=== PATIENT | female | born 1950 | race Caucasian/White ===

== ENCOUNTER → 2016-03-20 | Outpatient (CLI) | payer OTHER ==
[~2016-03-20] MED LIST: ACETAMINOPHEN-1 EAC1 PO; APAP650 PO; ASPIR 8181 MG PO; BISAC-EVAC10 MG RC; CELEBREX 200 M200 M1 PO; CELEBREX 200 M200 MG PO; CENTRUM SILVER1 EAC4 PO; CIPRO250 M1 PO; CIPRO500 MG PO; CLEOCIN HCL150 MG PO; COLACE100 MG PO; COLESTID1 GM PO; COUMADIN 5 MG TA5 M1; ENOXAPARIN80 MG/0.1; FLAGYL500 MG PO; FLORANEX TABLE1 EACH PO; GENTAMICIN 0.1%15 G2; LEVOTHYROXINE 0.15MG PO; LEVOXYL25 MCG PO; LIDODERM 5%1 PATC1 TRANSDERM; LIPITOR40 MG PO; LISINOPRIL10 MG PO; NORCO 5-325 TA1 EACH PO; PAXIL10 MG; SENNA PO; SERTRALINE HCL100 MG PO; TRAMADOL 50 MG50 MG PO; TRIAMCINOLONE A80 G2 TOP; VITAMIN B-12500 MCG PO; VITAMIN C500 M1 PO; VITAMIN D 5050000 I1 PO; XARELTO10 MG PO; ZETIA10 MG PO; ZOLOFT100 MG PO
== END ==
LOC: HYPER 07:15
DX: I89.0 Lymphedema, not elsewhere classified (principal); M81.0 Age-related osteoporosis without current pathological fracture

== ENCOUNTER → 2016-06-16 | Outpatient (CLI) | payer OTHER | LOC: HYPER 05-29 12:04 | DX: I89.0 Lymphedema, not elsewhere classified (principal); M16.12 Unilateral primary osteoarthritis, left hip; M81.0 Age-related osteoporosis without current pathological fracture ==

== ENCOUNTER → 2016-07-25 | Outpatient (CLI) | payer OTHER | LOC: RAD 02:33 | DX: R92.8 Other abnormal and inconclusive findings on diagnostic imaging of breast (principal) ==

== ENCOUNTER → 2016-08-24 | Outpatient (CLI) | payer OTHER | LOC: HYPER | DX: I89.0 Lymphedema, not elsewhere classified (principal); M16.12 Unilateral primary osteoarthritis, left hip; M81.0 Age-related osteoporosis without current pathological fracture ==

== ENCOUNTER → 2016-12-04 | Outpatient (CLI) | payer OTHER | LOC: HYPER 11-02 07:01 | DX: B43.2 Subcutaneous pheomycotic abscess and cyst (principal); M81.0 Age-related osteoporosis without current pathological fracture; I89.0 Lymphedema, not elsewhere classified; H26.9 Unspecified cataract; Z96.652 Presence of left artificial knee joint ==

== ENCOUNTER → 2016-12-06 | Outpatient (CLI) | payer OTHER | LOC: ULTRA 14:10 | DX: I89.0 Lymphedema, not elsewhere classified (principal); M25.562 Pain in left knee ==

== ENCOUNTER 2016-12-12 12:33 | Inpatient (IN) | payer OTHER ==
[~2016-12-12] VITALS: Ht 175.3 cm; Wt 82.6 kg
--- NOTE | ~2016-12-12 | HC ---
[facility] [place] [address] CONSULTATION Name: MEGAN SMITH Richard Room #: 409-P ADM IN M.R.#: [id number] Admission: 12/19/16 Attend Phys: Gerardo Reyes MD Discharge: Date of : 46 Report #: [id number] THIS REPORT FOR: //name// CC: Cristina Reyes REASON FOR CONSULTATION: Left total knee arthroplasty infection. HISTORY OF PRESENT ILLNESS: The patient was a 66-year-old with degenerative arthritis. She had a left total knee arthroplasty several years ago. Had difficulties during the early postoperative time with a nonhealing incision. It was felt that it most likely related to stitches not dissolving. She also has underlying chronic lymphedema. It took about 5 months for the incision to close. No obvious infection was identified during that time. Now presents for explantation of her hardware and tissue cultures after onset of increased pain along with medial compartment erythema. This did not respond to oral antibiotic therapy including Bactrim. I do not have her preoperative workup. It appears that there was evidence of fluid within the joint and surrounding tissues. Taken to surgery today for explantation. Postoperatively, appears stable. ALLERGIES: OXYCODONE, LYRICA, ADHESIVE TAPE, NEURONTIN. SULFA is recorded, but the patient was on this prior to her admission. MEDICATIONS: As noted on APR, now including vancomycin. Other medications as noted on her APR. PAST MEDICAL HISTORY: Bimalleolar fracture right ankle; chronic lymphedema; osteoarthritis involving multiple joints, more symptomatic at current time is her left hip; hypertension; anemia of chronic disease; obesity; hypothyroidism; hyperlipidemia; irritable bowel syndrome; ischemic colitis; DVT; depression; anxiety; cataract surgery; tonsillectomy. FAMILY HISTORY: Noncontributory. SOCIAL HISTORY: Nonsmoker, no significant alcohol intake. REVIEW OF SYSTEMS: No cardiopulmonary, GI or complaints. PHYSICAL EXAMINATION: VITAL SIGNS: Afebrile and hemodynamically stable. GENERAL: She is a bit lethargic, having just come out of surgery. She was cooperative and conversant. HEENT: Unremarkable. NECK: Supple. LUNGS: Clear. HEART: Regular with a 2/6 systolic murmur heard at left sternal border. ABDOMEN: Soft, nontender, no hepatosplenomegaly. Moderate obesity. [address] [address] CONSULTATION Name: MEGAN SMITH Room #: [address] [place] [address] IN [facility].#: [id number] Admission: 12/19/16 Attend Phys: Gerardo Reyes MD Discharge: Date of : 46 Report #: [id number] EXTREMITIES: Lymphedema to both lower extremities. Left knee was in surgical wrap with a Hemovac in place and external brace. Sensation to toes normal. Pulses in her feet normal. LABORATORY STUDIES: MRSA screen negative. Operative cultures are pending. Gram stain pending. Bone scan on 12/15/2016, increased blood flow to the left knee with increased uptake in the periarticular regions of the right knee consistent with severe osteoarthritis. Normal uptake in the bone adjacent to the arthroplasty on the left knee. IMPRESSION AND PLAN: A 66-year-old with left total knee arthroplasty infection. Pending Gram stain and cultures. The patient was on Bactrim leading into her surgery by history. This may affect our results. We will go with vancomycin to start with and then adjust accordingly. She will have a ____ catheter placed. We will check CBC, sedimentation rate, CMP. The lymphedema will be controlled. We will have lymphedema clinic sterile preparation technician assist while she is hospitalized. <ELECTRONICALLY SIGNED> By: Caesar Edwards MD 12/20/16 0817 1942 [id number] Caesar Edwards MD /nt
--- NOTE | ~2016-12-12 | O ---
[facility] [place] [address] OPERATIVE REPORT Name: MEGAN SMITH Room #: 409-P ADM IN M.R.#: [id number] Admission: 12/19/16 Attend Phys: Gerardo Reyes MD Discharge: Date of : 46 Report #: [id number] THIS REPORT FOR: //name// CC: Cristina Reyes DATE OF SERVICE: 12/19/2016 PREOPERATIVE DIAGNOSIS: Left knee wound infection with history of total knee arthroplasty. POSTOPERATIVE DIAGNOSIS: Left knee wound infection with history of total knee arthroplasty. PROCEDURE: Left knee irrigation, debridement and explantation of total knee implant followed by implantation of antibiotic spacer. SURGEON: Gerardo Reyes MD. DIGITAL EXPERIENCE MANAGER: ZEHRA Boone. ANESTHETIC: General. INDICATIONS: See [facility] and P. DESCRIPTION OF PROCEDURE: After adequate general anesthesia had been obtained, the patient's left lower extremity was prepped and draped in the usual meticulous sterile fashion. We used her previously made incision and we did ellipse out an area where she had a widened scar. Subcutaneous was divided sharply. We did encounter a purulent pocket of fluid anteromedially. We traced this down and I did traverse the quadriceps tendon and went intraarticularly thus communicating with the joint. For this reason, I felt explantation was indicated. We went ahead and did a medial parapatellar incision. The patient had exuberant reactive scar formation, which was excised. We then carefully removed the implant by using flexible osteotomes around the implant and then removing the implant. On the tibial side, we used flexible osteotomes proximally and then used the introducer to pull the tibia out. The patella was likewise removed. We took great care to ensure we removed all cement. The wound was irrigated with both pulse lavage and antibiotic irrigation. We then fabricated to antibiotic spacers made of cement. We placed 2 g of vancomycin into each. These were injected into the mould and allowed to fully harden. We then mixed up another batch of vancomycin impregnated cement to stabilize the implant. The implant was then put into position and held in position until the cement hardened. We then irrigated copiously once again and placed vancomycin powder in the interstices of the wound another gram and then placed interrupted [address] [address] OPERATIVE REPORT Name: SARAHMEGAN Richard Room #: 409-P [facility] IN M.R.#: [id number] Admission: 12/19/16 Attend Phys: Gerardo Reyes MD Discharge: Date of : 46 Report #: [id number] #1 Vicryl sutures along the retinaculum and then ran a #1 Tevdek. SubQ was closed with 2-0 Monocryl and the skin was closed with ivonne. We did place drains deep and superficial and we placed a Prevena dressing. The tourniquet was then deflated. <ELECTRONICALLY SIGNED> By: Gerardo Reyes MD 12/24/16 2123 1605 1653 Gerardo Reyes MD /nt
--- NOTE | ~2016-12-12 | EKG ---
[address] [address] ELECTROCARDIOGRAM REPORT Name: MARTA SMITHIRE Richard Room #: PRE IN [facility]#: [id number] Admission: Attend Phys: Gerardo Reyes MD Discharge: Date of : 46 Report #: [id number] THIS REPORT FOR: //name// [facility] Test Date: 2016-12-15 Test Time: 14:39:31 Pat Name: MEGAN SMITH Department: Room: Gender: F [employer] Principal: marquez aguilar : 1950 Requested By: Gerardo Reyes Order Number: [id number] MD: Raad Massey Measurements Intervals [place] Rate: 70 P: 63 LA: 174 QRS: 93 QRSD: 101 T: 1 QT: 373 QTc: 403 Interpretive Statements Pacemaker spikes or artifacts Sinus rhythm Borderline ST depression, inferior leads ST elevation, consider anterior injury Compared to ECG 06/30/2014 09:09:42 ST (T wave) deviation now present Myocardial infarct finding now present Electronically Signed On 12-15-2016 16:51:03 CDT by Raad Massey [email or web address] <ELECTRONICALLY SIGNED> By: Raad Massey MD 12/15/16 1651 1439 1439 Raad Massey MD /EPI
--- NOTE | ~2016-12-12 | EKG ---
[address] [address] ELECTROCARDIOGRAM REPORT Name: MARTA SMITHIRE Richard Room #: 409-P ADM IN M.R.#: [id number] Admission: 12/19/16 Attend Phys: Gerardo Reyes MD Discharge: Date of : 46 Report #: [id number] THIS REPORT FOR: //name// [facility] Test Date: 2016-12-25 Test Time: 08:58:11 Pat Name: MEGAN SMITH Department: Room: 409 P Gender: F Dry Janitor: JAMAL : 1950 Requested By: Jhonny Allan Order Number: [id number] MD: Raad Massey Measurements Intervals [place] Rate: 76 P: 36 [place]: 159 QRS: 0 QRSD: 100 T: 41 QT: 353 QTc: 397 Interpretive Statements Sinus rhythm Probable anteroseptal infarct, recent Compared to ECG 12/15/2016 14:39:31 ST (T wave) deviation no longer present Myocardial infarct finding still present Electronically Signed On 12-25-2016 14:11:42 CDT by Raad Massey [email or web address] <ELECTRONICALLY SIGNED> By: Raad Massey MD 12/25/16 1411 0858 0858 Raad Massey MD /EPI
[2016-12-14] MEDS ORDERED: BACTRIM DS TAB1 EACH PO (15:34)
[2016-12-14] MEDS ORDERED: CYMBALTA30 MG PO (15:37)
[2016-12-15 15:04] LABS: INR 1.1; PROTIME 10.9 Seconds (9.3-11.4)
[2016-12-15 15:24] LABS: URINE BILIRUBIN NEGATIVE (Negative); URINE BLOOD NEGATIVE (Negative); URINE COLOR YELLOW; URINE GLUCOSE-RANDOM* NEGATIVE (Negative); URINE KETONES NEGATIVE (Negative); URINE LEUKOCYTES-REFLEX NEGATIVE (Negative); URINE PROTEIN (DIPSTICK) NEGATIVE (Negative); URINE SPECIFIC GRAVITY <= 1.005 (1.003-1.035); URINE UROBILINOGEN 0.2 E.U./dl (0.2-1.0)
[2016-12-19 18:00] VITALS: BP 135/65
[2016-12-19 19:00] VITALS: BP 129/69
[2016-12-19 19:30] VITALS: BP 133/68
[2016-12-19 20:00] VITALS: BP 120/54
[2016-12-19 21:30] VITALS: BP 132/71
[2016-12-20] VITALS: BP 164/69
[2016-12-20 04:00] VITALS: BP 151/55
[2016-12-20 06:04] LABS: HEMATOCRIT 25.9 % (37.0-47.0); HEMOGLOBIN 8.7 gm/dL (12.0-15.0); MCH 28.5 pg (26.0-34.0); MCHC 33.4 g/dL (28.0-37.0); MCV 85.4 fL (80.0-100.0); PLATELET COUNT 193 thou/uL (150-400); RBC 3.03 mil/uL (4.20-5.00); RDW 14.8 % (10.5-14.5); WBC 7.4 thou/uL (4.0-11.0)
[2016-12-20 06:11] LABS: MANUAL DIFF YES
[2016-12-20 06:18] LABS: CALCIUM 9.1 mg/dL (8.5-10.1); CREATININE 0.7 mg/dL (0.6-1.0); POTASSIUM 4.9 mmol/L (3.5-5.1); TOTAL BILIRUBIN 0.6 mg/dL (<0.1-1.0); TOTAL PROTEIN 6.3 g/dL (6.4-8.2)
[2016-12-20 08:00] VITALS: BP 153/64
[2016-12-20 09:16] LABS: ABSOLUTE NEUTROPHILS 5.4 thou/uL (1.4-8.2); ANISOCYTOSIS SLIGHT; POIKILOCYTOSIS SLIGHT; TOTAL CELL COUNT 100
[2016-12-20 20:45] VITALS: BP 163/74
[2016-12-21] VITALS (7 sets, daily range): BP systolic 99–141; BP diastolic 38–60
[2016-12-21 05:34] LABS: ABSOLUTE NEUTROPHILS 3.8 thou/uL (1.4-8.2); BASOPHILS 0.5 % (0.0-2.0); EOSINOPHILS 0.4 % (0.0-3.0); LYMPHOCYTES 17.6 % (24.0-44.0); MCH 28.8 pg (26.0-34.0); MCHC 33.8 g/dL (28.0-37.0); MCV 85.1 fL (80.0-100.0); PLATELET COUNT 130 thou/uL (150-400); POLYS 69.5 % (36.0-66.0); RBC 2.28 mil/uL (4.20-5.00); WBC 5.5 thou/uL (4.0-11.0)
[2016-12-21 05:36] LABS: CALCIUM 8.6 mg/dL (8.5-10.1); CREATININE 0.5 mg/dL (0.6-1.0)
[2016-12-21 05:38] LABS: HEMOGLOBIN 6.6 gm/dL (12.0-15.0)
[2016-12-21 05:39] LABS: HEMATOCRIT 19.4 % (37.0-47.0); MANUAL DIFF NO
[2016-12-22 07:18] VITALS: BP 123/51
[2016-12-22 08:35] LABS: ABSOLUTE NEUTROPHILS 4.8 thou/uL (1.4-8.2); BASOPHILS 0.4 % (0.0-2.0); EOSINOPHILS 0.9 % (0.0-3.0); HEMATOCRIT 23.3 % (37.0-47.0); HEMOGLOBIN 7.9 gm/dL (12.0-15.0); LYMPHOCYTES 17.7 % (24.0-44.0); MCH 29.3 pg (26.0-34.0); MCV 86.3 fL (80.0-100.0); MONOCYTES 9.8 % (1.0-8.0); PLATELET COUNT 125 thou/uL (150-400); POLYS 71.2 % (36.0-66.0); RBC 2.71 mil/uL (4.20-5.00); RDW 14.6 % (10.5-14.5); WBC 6.7 thou/uL (4.0-11.0)
[2016-12-22 08:37] LABS: MANUAL DIFF NO
[2016-12-22 08:43] LABS: CALCIUM 8.8 mg/dL (8.5-10.1); CREATININE 0.5 mg/dL (0.6-1.0); POTASSIUM 4.1 mmol/L (3.5-5.1)
[2016-12-22] MEDS ORDERED: ENOXAPARIN30 MG/0.1 SUBQ (09:31)
[2016-12-22 15:35] VITALS: BP 124/47
[2016-12-22 20:00] VITALS: BP 121/51
[2016-12-23 04:12] VITALS: BP 114/59
[2016-12-23 07:14] VITALS: BP 126/55
[2016-12-23 15:06] VITALS: BP 138/49
[2016-12-23 20:00] VITALS: BP 121/57
[2016-12-24 04:00] VITALS: BP 120/61
[2016-12-24 06:42] LABS: ABSOLUTE NEUTROPHILS 4.9 thou/uL (1.4-8.2); BASOPHILS 0.4 % (0.0-2.0); EOSINOPHILS 0.9 % (0.0-3.0); HEMATOCRIT 22.9 % (37.0-47.0); HEMOGLOBIN 7.7 gm/dL (12.0-15.0); LYMPHOCYTES 19.4 % (24.0-44.0); MCH 29.4 pg (26.0-34.0); MCHC 33.6 g/dL (28.0-37.0); MCV 87.6 fL (80.0-100.0); MONOCYTES 10.2 % (1.0-8.0); PLATELET COUNT 164 thou/uL (150-400); POLYS 69.1 % (36.0-66.0); RBC 2.61 mil/uL (4.20-5.00); RDW 15.3 % (10.5-14.5); WBC 7.1 thou/uL (4.0-11.0)
[2016-12-24 06:45] LABS: MANUAL DIFF NO
[2016-12-24 06:54] LABS: CREATININE 0.4 mg/dL (0.6-1.0); POTASSIUM 3.1 mmol/L (3.5-5.1)
[2016-12-24 09:10] VITALS: BP 124/64
[2016-12-24 16:10] VITALS: BP 124/59
[2016-12-24 20:00] VITALS: BP 144/62
[2016-12-25 04:00] VITALS: BP 147/65
[2016-12-25 06:31] LABS: ABSOLUTE NEUTROPHILS 4.2 thou/uL (1.4-8.2); BASOPHILS 0.2 % (0.0-2.0); EOSINOPHILS 1.3 % (0.0-3.0); HEMATOCRIT 21.9 % (37.0-47.0); HEMOGLOBIN 7.4 gm/dL (12.0-15.0); LYMPHOCYTES 16.6 % (24.0-44.0); MCH 29.4 pg (26.0-34.0); MCHC 33.8 g/dL (28.0-37.0); MCV 87.1 fL (80.0-100.0); MONOCYTES 11.2 % (1.0-8.0); PLATELET COUNT 182 thou/uL (150-400); POLYS 70.7 % (36.0-66.0); RBC 2.52 mil/uL (4.20-5.00); RDW 15.2 % (10.5-14.5); WBC 5.9 thou/uL (4.0-11.0)
[2016-12-25 06:41] LABS: MANUAL DIFF NO
[2016-12-25 06:49] LABS: CALCIUM 8.9 mg/dL (8.5-10.1); CREATININE 0.5 mg/dL (0.6-1.0); POTASSIUM 4.1 mmol/L (3.5-5.1)
[2016-12-25] MEDS ORDERED: ACETAMINOPHEN-1 EAC1 PO (08:34)
[2016-12-25 08:40] VITALS: BP 145/70
[2016-12-25 16:00] VITALS: BP 101/66
[2016-12-25 20:30] VITALS: BP 110/60
[2016-12-26 05:35] VITALS: BP 106/59
[2016-12-26 08:00] VITALS: BP 106/59
[2016-12-26 08:30] VITALS: BP 116/49
== END 2016-12-26 15:45 | DRG 463 ==
LOC: OR 12:33 → EDSTATUS 15:16 → OR 15:24 → 4N 12-19 05:11 → TBA 12-19 05:11 → PRE 12-19 05:21 → 4N 12-19 18:26
PROVIDERS: Family Medicine; Internal Medicine Endocrinology, Diabetes & Metabolism; Orthopaedic Surgery; Specialist
PROC: 0SPD0JZ Removal of Synthetic Substitute from Left Knee Joint, Open Approach (ICD-10-PCS; principal; 2016-12-19)
PROC: 0SBD0ZZ Excision of Left Knee Joint, Open Approach (ICD-10-PCS; 2016-12-19)
PROC: 0SHD08Z Insertion of Spacer into Left Knee Joint, Open Approach (ICD-10-PCS; 2016-12-19)
PROC: 02HV33Z Insertion of Infusion Device into Superior Vena Cava, Percutaneous Approach (ICD-10-PCS; 2016-12-20)
PROC: 30233N1 Transfusion of Nonautologous Red Blood Cells into Peripheral Vein, Percutaneous Approach (ICD-10-PCS; 2016-12-21)
DX: T84.54XA Infection and inflammatory reaction due to internal left knee prosthesis, initial encounter (principal); A41.9 Sepsis, unspecified organism; E44.1 Mild protein-calorie malnutrition; I89.0 Lymphedema, not elsewhere classified; M19.90 Unspecified osteoarthritis, unspecified site; I10 Essential (primary) hypertension; E66.9 Obesity, unspecified; E03.9 Hypothyroidism, unspecified; E78.5 Hyperlipidemia, unspecified; K58.9 Irritable bowel syndrome, unspecified; F32.9 Major depressive disorder, single episode, unspecified; F41.9 Anxiety disorder, unspecified; Y83.8 Other surgical procedures as the cause of abnormal reaction of the patient, or of later complication, without mention of misadventure at the time of the procedure; D64.9 Anemia, unspecified; E87.6 Hypokalemia; Z23 Encounter for immunization; Z88.8 Allergy status to other drugs, medicaments and biological substances; Z91.040 Latex allergy status; Z86.718 Personal history of other venous thrombosis and embolism; Z98.49 Cataract extraction status, unspecified eye; Y92.89 Other specified places as the place of occurrence of the external cause; Z68.26 Body mass index [BMI] 26.0-26.9, adult; Z88.2 Allergy status to sulfonamides
CPT/HCPCS: 10790; 27000; 50010; 50101; 50415; 50953; 50954; 51130; 51225; 51320; 51412; 51771; 53078; 55430; 56525; 56527; 62110; 62900; 64041; 70005

== ENCOUNTER → 2016-12-15 | Outpatient (CLI) | payer OTHER ==
[~2016-12-15] MED LIST changes: +BACTRIM DS TAB1 EACH PO; +CYMBALTA30 MG PO
== END ==
LOC: NUC 09:34
DX: M17.11 Unilateral primary osteoarthritis, right knee (principal)

== ENCOUNTER 2017-02-15 16:16 | Inpatient (IN) | payer OTHER ==
[~2017-02-15] VITALS: Ht 175.3 cm; Wt 83.9 kg
--- NOTE | ~2017-02-15 | HC ---
[facility] [place] [address] CONSULTATION Name: MEGAN SMITH Room #: 410- ADM IN M.R.#: [id number] Admission: 02/15/17 Attend Phys: Gerardo Reyes MD Discharge: Date of : 46 Report #: [id number] THIS REPORT FOR: //name// CC: Cristina Reyes DATE OF SERVICE: 02/15/2017 TYPE OF CONSULTATION: Internal Medicine. REASON FOR CONSULTATION: Medical management. HISTORY OF PRESENT ILLNESS: The patient is a 66-year-old female who was hospitalized here recently, in the beginning of this month. The patient was admitted here for left knee hardware removal, spacer placement for the infected left knee. Prior to that, the patient had several falls, and she had knee replacement surgery, followed by another fall. The patient states that she was recovering well, and this morning, she experienced severe pain in her left knee. She was seen in the outpatient orthopedic clinic, and she was found that her knee stabilizer hardware was displaced and penetrating the skin. The patient was admitted for further evaluation and treatment. Currently, pain is well controlled. The patient has no fever or chills. She states that a few days ago, she was told that she had flu. She denies wheezing, but reports nasal congestion. She has been afebrile since she has been here. PAST MEDICAL HISTORY: 1. Hypertension. 2. Hypothyroidism. 3. Anxiety and depression. 4. Osteoporosis. 5. Chronic lymphedema. 6. Status post left knee antibiotic spacer placement, and previous left knee surgeries. FAMILY HISTORY: Reviewed and not pertinent to the patient's current condition. SOCIAL HISTORY: The patient does not smoke cigarettes and does not drink alcohol. REVIEW OF SYSTEMS: As above in HPI section, all others negative. PHYSICAL EXAMINATION: GENERAL: The patient is an elderly female who is in no apparent distress. [facility] [address] [place] [address] CONSULTATION Name: MEGAN SMITH Room #: 410-P [facility] IN M.R.#: [id number] Admission: 02/15/17 Attend Phys: Gerardo Reyes MD Discharge: Date of : 46 Report #: [id number] VITAL SIGNS: Blood pressure is 113/55, heart rate is 70, respiration is 16, and temperature is 98.5. HEENT: Pupils are equal. Eye movements are normal. Sclerae are anicteric. NECK: Supple. The patient has no thyromegaly. JVD is not appreciated. The patient has no carotid bruits. RESPIRATORY: The patient has occasional wheezing. Respiratory sounds are otherwise normal. CARDIOVASCULAR: The patient has regular rhythm and rate. She has no murmurs, gallops or rubs. GASTROINTESTINAL: Abdomen is soft, nondistended and nontender. Bowel sounds are present. The patient has no hepatomegaly or splenomegaly. MUSCULOSKELETAL: The patient has lymphedema wrap on the right. The left leg is in cast. Range of motion cannot be assessed. NEUROLOGIC: The patient is alert and oriented x 3. Her examination is nonfocal. SKIN: Reveals no skin lesions. LABORATORY DATA: Currently not available. ASSESSMENT AND PLAN: 1. Status post knee surgeries, infected left knee, spacer placement earlier this month. The patient has hardware displacement, and she is seen and evaluated by orthopedic surgeon. The patient is supposed to be on IV antibiotics for a total of 6 weeks. Infectious disease specialist is consulted for antibiotic management and for further evaluation. 2. Hypertension, acceptable control. Home medications will be clarified, and resumed unchanged. 3. Hypothyroidism. Check TSH, adjust levothyroxine if necessary. 4. Anxiety and depression, stable. Resume home medications once clarified. 5. The patient reports recent flu, but she is not sure. We will test her for flu, and obtain chest x-ray. We will continue to follow the patient during the hospitalization, and we will provide further recommendations. Once again, thank you very much for allowing us to participate in the care of your patients. By: 1838 2310 Christiano Varela MD /nt
--- NOTE | ~2017-02-15 | O ---
[facility] [place] [address] OPERATIVE REPORT Name: MEGAN SMITH Room #: 410-P ADM IN M.R.#: [id number] Admission: 02/15/17 Attend Phys: Gerardo Reyes MD Discharge: Date of : 46 Report #: [id number] THIS REPORT FOR: //name// CC: Cristina Reyes DATE OF SERVICE: 02/16/2017 PREOPERATIVE DIAGNOSIS: Left knee painful hardware. POSTOPERATIVE DIAGNOSIS: Left knee painful hardware. PROCEDURE: Left knee hardware removal. SURGEON: Gerardo Reyes MD. ANESTHESIA: General. INDICATIONS: See hospital H and P. DESCRIPTION OF PROCEDURE: After adequate general anesthesia had been obtained, the patient's left lower extremity was prepped and draped in the usual meticulous sterile fashion. The pin that had been noted to be tenting her skin yesterday had actually gone on to poke through the skin overnight. The incision was extended a little bit proximally and distally from where the pin had protruded. The pin was removed without difficulty. The wound was then irrigated copiously with antibiotic irrigation. We then closed the wound with combination of 2-0 Monocryl subcu and ivonne. Sterile compressive dressing was applied. By: 0810 0831 Gerardo Reyes MD /nt
[~2017-02-15 16:16] MED LIST changes: +DILAUDID 2 MG TA2 MG PO; +ENOXAPARIN30 MG/0.1 SUBQ; +LEVOXYL150 MCG PO; +MIRALAX17 GM PO; +MOBIC7.5 MG PO; +VANCO 1.51.5 GM/500 IV; +VANCOMYCIN1.5 GM/500 IV
[2017-02-15 18:26] VITALS: BP 113/55
[2017-02-15 19:53] LABS: BASOPHILS 0.6 % (0.0-2.0); EOSINOPHILS 3.1 % (0.0-3.0); HEMATOCRIT 25.3 % (37.0-47.0); HEMOGLOBIN 8.7 gm/dL (12.0-15.0); LYMPHOCYTES 25.7 % (24.0-44.0); MCH 28.7 pg (26.0-34.0); MCHC 34.5 g/dL (28.0-37.0); MCV 83.2 fL (80.0-100.0); MONOCYTES 11.7 % (1.0-8.0); PLATELET COUNT 167 thou/uL (150-400); POLYS 58.9 % (36.0-66.0); RBC 3.04 mil/uL (4.20-5.00); WBC 3.3 thou/uL (4.0-11.0)
[2017-02-15 19:54] LABS: MANUAL DIFF NO
[2017-02-15 20:59] VITALS: BP 146/78
[2017-02-16] VITALS (11 sets, daily range): BP systolic 125–149; BP diastolic 53–84
[2017-02-16 06:21] LABS: HEMATOCRIT 25.1 % (37.0-47.0); HEMOGLOBIN 8.6 gm/dL (12.0-15.0); MCHC 34.4 g/dL (28.0-37.0); MCV 84.3 fL (80.0-100.0); PLATELET COUNT 161 thou/uL (150-400); RBC 2.98 mil/uL (4.20-5.00); WBC 2.8 thou/uL (4.0-11.0)
[2017-02-16 06:28] LABS: CREATININE 0.6 mg/dL (0.6-1.0); POTASSIUM 3.6 mmol/L (3.5-5.1)
[2017-02-16 06:30] LABS: MANUAL DIFF YES
[2017-02-16 08:45] LABS: ABSOLUTE NEUTROPHILS 1.6 thou/uL (1.4-8.2); ANISOCYTOSIS 1+; TOTAL CELL COUNT 100
[2017-02-17 04:00] VITALS: BP 145/84
[2017-02-17 05:57] LABS: HEMATOCRIT 23.9 % (37.0-47.0); HEMOGLOBIN 8.2 gm/dL (12.0-15.0); MCH 28.6 pg (26.0-34.0); MCHC 34.2 g/dL (28.0-37.0); MCV 83.7 fL (80.0-100.0); PLATELET COUNT 159 thou/uL (150-400); RBC 2.86 mil/uL (4.20-5.00); RDW 15.3 % (10.5-14.5)
[2017-02-17 05:59] LABS: MANUAL DIFF YES
[2017-02-17 06:29] LABS: ABSOLUTE NEUTROPHILS 1.6 thou/uL (1.4-8.2); TOTAL CELL COUNT 100
[2017-02-17 06:30] LABS: ANISOCYTOSIS 1+
[2017-02-17 08:00] VITALS: BP 183/84
[2017-02-17 16:00] VITALS: BP 121/65
[2017-02-17 20:00] VITALS: BP 163/82
[2017-02-18 04:00] VITALS: BP 166/92
[2017-02-18 16:17] VITALS: BP 155/75
[2017-02-18 21:11] VITALS: BP 196/88
[2017-02-19 06:03] VITALS: BP 178/92
[2017-02-19 09:42] VITALS: BP 158/82
[2017-02-19 12:50] LABS: % SATURATION 17 % (20-39); IRON 36 ug/dL (50-170); TIBC 215 ug/dL (250-450); UIBC 179 ug/dL
[2017-02-19 20:05] VITALS: BP 164/70
[2017-02-20 03:18] VITALS: BP 111/45
[2017-02-20 03:30] VITALS: BP 164/77
[2017-02-20 07:42] VITALS: BP 159/79
[2017-02-20] MEDS ORDERED: MULTIGEN CAPLET1 CAP PO (10:36)
== END 2017-02-20 15:15 | DRG 463 ==
LOC: 4N 16:16
PROVIDERS: Hospitalist; Internal Medicine Endocrinology, Diabetes & Metabolism; Orthopaedic Surgery; Specialist
PROC: 0SPD0JZ Removal of Synthetic Substitute from Left Knee Joint, Open Approach (ICD-10-PCS; principal; 2017-02-16)
PROC: 0SHD08Z Insertion of Spacer into Left Knee Joint, Open Approach (ICD-10-PCS; principal; 2017-02-16)
DX: T84.84XA Pain due to internal orthopedic prosthetic devices, implants and grafts, initial encounter (principal); E43 Unspecified severe protein-calorie malnutrition; I10 Essential (primary) hypertension; E03.9 Hypothyroidism, unspecified; F41.9 Anxiety disorder, unspecified; F32.9 Major depressive disorder, single episode, unspecified; M81.0 Age-related osteoporosis without current pathological fracture; Z96.652 Presence of left artificial knee joint; D64.9 Anemia, unspecified; L08.9 Local infection of the skin and subcutaneous tissue, unspecified; G89.29 Other chronic pain; M16.12 Unilateral primary osteoarthritis, left hip; S83.192A Other subluxation of left knee, initial encounter; Z88.6 Allergy status to analgesic agent; Z88.2 Allergy status to sulfonamides; Z88.8 Allergy status to other drugs, medicaments and biological substances; Z98.49 Cataract extraction status, unspecified eye; Z80.0 Family history of malignant neoplasm of digestive organs; Z68.27 Body mass index [BMI] 27.0-27.9, adult
CPT/HCPCS: 10790; 50010; 50101; 50386; 51412; 51771; 56525; 57091; 62110; 62900; 70005

== ENCOUNTER → 2017-11-22 | Outpatient (CLI) | payer OTHER ==
[~2017-11-22] VITALS: Ht 175.3 cm; Wt 116.0 kg
[~2017-11-22] MED LIST changes: +DURAGESIC1 EACH TRANSDERM; +FENTANYL1 EAC2 TRANSDERM; +FENTANYL1 EAC3 TRANSDERM; +FENTANYL1 EAC4 TRANSDERM; +MULTIGEN CAPLET1 CAP PO
--- NOTE | ~2017-11-22 | HPC ---
[facility] [place] [address] PAIN MANAGEMENT CONSULTATION Name: MEGAN SMITH Room #: REG [facility] Hien.#: [id number] Admission: 11/22/17 Attend Phys: Dom Tian MD Discharge: Date of : 46 Report #: [id number] THIS REPORT FOR: //name// CC: Cristina Tian DATE OF SERVICE: 11/22/2017 Followup visit for chronic pain. This is the first time I have seen the patient at [facility]. Her last visit with me was on 08/22/2017 at [facility]. This is more convenient for her. I will see her here going forward. I provided her with opioid medication baseline and breakthrough for chronic pain in the left hip and knee. She also suffers from lymphedema which is uncomfortable for her. Medications have been helpful, although she has developed some tolerance to the use of the fentanyl at 12 mcg, the lowest dose. She uses Tylenol No. 3 for breakthrough 3 times daily, generally taking it after or before therapy. She denies any significant side effects. She is grateful for the pain relief that the medication provides. She feels that she is able to function, particularly at therapy more effectively with pain medication. Comorbidities include depression, anemia, hypothyroidism, history of small CVA in 2015, osteoarthritis, depression, and she has struggled with the complications of the left knee replacement with resulting infection, replacement of the prosthesis with spacers and long-term antibiotic therapy. She remains limited in her standing and weightbearing. She is in a wheelchair today. PHYSICAL EXAMINATION: VITAL SIGNS: Blood pressure 123/51, heart rate 73, respirations 20. BMI is 29.5. GENERAL: She is alert and oriented, pleasant and kind. I did not ask her to stand or walk. Exam was limited. The PQRS review includes a history of osteoarthritis with complications following joint replacement as described. She is obese with a BMI of 37.8. Dietary oversight is warranted. Blood pressure is 123/51, heart rate 73, respirations 20, oxygen saturation 100%. She is a fall risk and needs help standing and walking. She is on no blood thinners at this time. Her hypertension is under treatment. She is on an opioid agreement signed on 11/22/2017 and her risk assessment tool is 3, suggesting low risk for misuse or [address] [address] PAIN MANAGEMENT CONSULTATION Name: MEGAN SMITH Room #: REG [facility] Hien.#: [id number] Admission: 11/22/17 Attend Phys: Dom Tian MD Discharge: Date of : 46 Report #: [id number] addiction. She denies use of tobacco or alcohol. IMPRESSION: 1. Chronic intractable pain status post left knee replacement with complications and need for removal of the prosthesis and long-term antibiotics. Slow recovery. 2. Situational depression. 3. Management of high risk medications under terms of an opioid agreement. RECOMMENDATIONS: We discussed increasing her fentanyl patch from 12-25 mcg. I believe this would be reasonable and if it appears that this is too strong, we can back down. We will continue Tylenol No. 3 for breakthrough, no more than 3 tablets per day. We talked about the use of breakthrough medication prior to therapy. She will safeguard her medications and use them as prescribed. Followup visit is scheduled in 3 months. By: 1650 2329 Dom Tian MD /nt
[2017-11-22 13:46] VITALS: BP 123/51
== END ==
LOC: PAIN 09:19
DX: G89.4 Chronic pain syndrome (principal); F32.9 Major depressive disorder, single episode, unspecified; Z79.899 Other long term (current) drug therapy

== ENCOUNTER → 2018-01-01 | Outpatient (CLI) | payer OTHER | LOC: HYPER 07:19 | DX: I89.0 Lymphedema, not elsewhere classified (principal); M81.0 Age-related osteoporosis without current pathological fracture; Z96.652 Presence of left artificial knee joint ==

== ENCOUNTER → 2018-02-28 | Outpatient (CLI) | payer OTHER ==
--- NOTE | ~2018-02-28 | HPC ---
[facility] [address] [place] [address] PAIN MANAGEMENT CONSULTATION Name: MEGAN SMITH Room #: REG [facility] M.R.#: [id number] Admission: 02/28/18 Attend Phys: Dom Tian MD Discharge: Date of : 46 Report #: [id number] THIS REPORT FOR: //name// CC: Cristina Tian REASON FOR CONSULTATION: Followup visit for chronic lower extremity pain status post left knee replacement with complications. The patient is here today for renewal of medications and review of her opioid agreement. She continues to do well with fentanyl 25 mcg q. 72 hours, providing a baseline of pain control for her. She has Tylenol No. 3 for breakthrough pain, which she utilizes up to 3 times a day, but does not take it with consistency. She uses it once again before or after her therapy. She is making progress in her therapies. She reports today that she is able to stand independently for up to 5 seconds. This is improvement. She suffers from lymphedema and when she is in her wheelchair, she keep her legs elevated. Her legs were elevated today throughout her visit. She has suffered in the past with depression and difficulties related to the prolonged chronic recovery from her complications of knee replacement. She seems more positive and upbeat today. I reviewed her activities of daily living. She is able to provide all of her own hygiene and dress. She needs some assistance and has a caregiver that assists for about 4 hours with some of her daily activities. She is making progress in her mobility and is able to transfer independently to a wheelchair. PQRS: 1. History of osteoarthritis of knees, hips, toes, fingers. 2. BMI 29.5. 3. Blood pressure 126/51, heart rate 70. 4. Pain intensity 0-1 with medication. 5. She needs help standing and walking. She has not fallen in 3 months, but would clearly be a fall risk if she was independent. 6. No blood thinners. 7. History of hypertension, under treatment with medication as noted on the electronic medical record, followed by Dr. Cristina Pierce. 8. She is on an opioid agreement signed in 2018. 9. She is at low risk for addiction. 10. Functional assessment tool is improved to 33/70. SOCIAL HISTORY: She denies use of tobacco. PHYSICAL EXAMINATION: Exam otherwise was limited. [facility] [address] [place] [address] PAIN MANAGEMENT CONSULTATION Name: MEGAN SMITH Room #: REG [facility] Amanda#: [id number] Admission: 02/28/18 Attend Phys: Dom Tian MD Discharge: Date of : 46 Report #: [id number] IMPRESSION: 1. Chronic intractable pain status post left knee replacement with complications, now with permanent replacement of knee, in slow recovery. 2. Situational depression, improved. 3. Management of high risk medications under terms of an opioid agreement. We reviewed all her medications and cross-check of her medications was performed. There are some electrolyte abnormalities that can occur with combinations of her antidepressant and antihypertensive medications. I would recommend that she follow these quarterly with her primary care physician. She denies any significant side effects from her fentanyl and is grateful for the relief that she receives. She will safeguard her patches. Follow up in 3 months. By: 1619 0227 Dom Tian MD /nt
[2018-02-28 09:53] VITALS: BP 126/51
--- NOTE | 2018-02-28 10:34 | NUR ---
Pain Clinic Assessment: 1. History of Osteoarthritis: KNEES HIPS TOES FINGERS History of Rheumatoid Arthritis: 2. Height: 5 ft. 9 in. 175.3 cm. Weight: lb. oz. kg. Patient's BMI: 3. Vital Signs: BP: 126/51 Pulse: 70 Resp: 16 Temp: 02 Sat: 100 ECG Mon: 4. Pain Intensity: 0-1 5. Fall Risk: Dizziness: N Needs help standing or walking: Y Fallen in the last 3 months: N Fall risk comments: 6. Patient on Blood Thinner: None 7. History of Hypertension: Y 8. Opioid Therapy greater than 6 weeks: Y Opiate Contract Signed: 11/22/17 9. Risk Assessment Tool Provided: *3 LOW RISK 10. Functional Assessment Tool: 11. Recreational Drug Use: Never Drug Type: Tobacco Use: Never Smoker Tobacco Type: Amount or Packs/day: How Many Years: Alcohol Use: No Frequency: Quant:
== END ==
LOC: PAIN 07:28
DX: M25.562 Pain in left knee (principal); G89.4 Chronic pain syndrome; F32.9 Major depressive disorder, single episode, unspecified; Z79.899 Other long term (current) drug therapy; Z79.891 Long term (current) use of opiate analgesic; Z96.652 Presence of left artificial knee joint

== ENCOUNTER → 2018-05-23 | Outpatient (CLI) | payer OTHER ==
[~2018-05-23] MED LIST changes: +TOPROL XL25 MG PO
[2018-05-23 10:35] VITALS: BP 126/50
--- NOTE | 2018-05-23 10:39 | NUR ---
Pain Clinic Assessment: 1. History of Osteoarthritis: KNEES HIPS TOES FINGERS History of Rheumatoid Arthritis: Not Applicable 2. Height: 5 ft. 9 in. 175.3 cm. Weight: lb. oz. kg. Patient's BMI: 3. Vital Signs: BP: 126/50 Pulse: 51 Resp: 16 Temp: 02 Sat: 98 ECG Mon: 4. Pain Intensity: 4 with activity 5. Fall Risk: Dizziness: N Needs help standing or walking: N Fallen in the last 3 months: N Fall risk comments: 6. Patient on Blood Thinner: None 7. History of Hypertension: Y 8. Opioid Therapy greater than 6 weeks: Y Opiate Contract Signed: 11/22/17 9. Risk Assessment Tool Provided: *3 LOW RISK 10. Functional Assessment Tool: 11. Recreational Drug Use: Never Drug Type: Tobacco Use: Never Smoker Tobacco Type: Amount or Packs/day: How Many Years: Alcohol Use: No Frequency: Quant:
--- NOTE | 2018-05-27 07:58 | HPC ---
[facility] [address] [place] [address] PAIN MANAGEMENT CONSULTATION Name: MEGAN SMITH Room #: REG FRANSICO [facility].#: [id number] Admission: 05/23/18 ������������������ Attend Phys: Christy Joy Discharge: ������������������ Date of : 46 Report #: [id number] THIS REPORT FOR: //name// CC: Chrsity Pierce MD DATE OF SERVICE: 05/23/2018 CHIEF COMPLAINT: Chronic lower extremity pain status post left knee replacement with complications. HISTORY OF PRESENT ILLNESS: The patient returns to the Pain Clinic today for refill of her medications under her opioid agreement. She is currently on fentanyl 25 mcg patches. She finds this is very beneficial for her. She occasionally takes some Tylenol No. 3 for breakthrough pain, but finds that she is using less of that medication. She does also have lymphedema and her legs are wrapped today as well as wearing a glove on her left hand. The patient tells me that her pain score is 4/10 with activity and currently at this moment she is stating her pain is 0. She is in a wheelchair today. She has not walked for some time, but she tells me that she decided within the past few days that she needs to start moving and getting up and walking and she realized that her legs are different length due to her surgeries, so she is looking for a special orthotic shoe to compensate for the difference in her height. She is working with a physical therapist on this, so therefore she can hopefully start walking again and building her strength. She tells me that she did not have any problems with constipation because she uses tomatoes, apples, oranges, and plenty of liquids. She also tells me she has no daytime sleepiness. Just would like a refill of her medications and very thankful that she is, where she is at today. ALLERGIES: SULFA, HYDROCODONE, OXYCODONE, ADHESIVE, GABAPENTIN AND LYRICA. CURRENT LIST OF MEDICINES: Toprol-XL 25 mg daily, fentanyl patch 25 mcg every 72 hours, Tylenol No. 3 p.r.n., Celebrex 200 mg daily, Cymbalta 30 mg at bedtime, vitamin C daily, Levoxyl 150 mcg daily, Lipitor 40 mg at bedtime, Zoloft 200 mg at bedtime. PQRS: 1. She has a history of osteoarthritis in her knees, hips, toes, and fingers. Denies rheumatoid arthritis. 2. Height is 5 feet 9 inches. Weight is deferred today. In October, it was 255. 3. Vital signs: Blood pressure 126/50, pulse is 51, respirations 16, oxygen sat is 98. 4. Pain score is 4/10 with activity, 0 currently sitting. [facility] [address] [place] [address] PAIN MANAGEMENT CONSULTATION Name: MEGAN SMITH Room #: REG CL Rajiv.Justina.#: [id number] Admission: 05/23/18 ������������������ Attend Phys: Christy Joy Discharge: ������������������ Date of : 46 Report #: [id number] 5. Fall risk. She denies dizziness. Does need help walking and standing and she is in a wheelchair today and she has not fallen in the last 3 months. 6. The patient is not on any blood thinners. She does take medicine for hypertension. 7. Opiate therapy is greater than 6 weeks. Therefore, an opiate signed contract is on the chart. 8. Risk assessment tool is low. Her functional assessment is 33/70. 9. Recreational drug use, she denies. She does not smoke and does not drink alcohol. Check the prescription monitoring system. The patient is filling appropriately for her medications slightly early here today, but will be unable to fill these until 06/03. The patient tells me that she does safeguard her medications. She has a sister that is a nurse and helps her apply her fentanyl patches, which is located on her presently today. I have visualization by myself. PHYSICAL EXAMINATION: GENERAL: This is alert and orientated 68-year-old female, who appears her stated age. HEENT: Normocephalic, atraumatic. Extraocular eye muscles are intact. EXTREMITIES: She has pain that radiates through her left leg into her foot. Legs are both bilaterally wrapped with Mike bandages due to her lymphedema. She tells me she has tenderness in her knee. We reviewed the fact that opiate medications are being used to provide analgesia adequate to support activities of daily living, not attempting to achieve a specific pain score on the 0-10 Visual Analog Scale. The current opiate medications are providing sufficient analgesia to allow the patient to participate in activities of daily living. The patient is not exhibiting any aberrant behavior suggestive of drug diversion. The patient is not having any adverse reactions to medications. The patient is not suffering from daytime somnolence or mental acuity changes. The patient is managing opiate-induced constipation with appropriate nukh-ynn-[id number] agents and dietary considerations. The patient was counseled on concern for caution with operating a motor vehicle while using opiate medications. A physical exam was performed and the patient's functional status was evaluated. All patients with back pain were advised against the bed rest greater than 4 days and were advised to return to normal activities. Pain score assessment was noted and the treatment plan was reviewed with the patient. All current medications, both prescribed and OTC were reviewed and reconciled on the electronic medical record. Tobacco screening was accomplished and smoking cessation was advised when indicated. BMI was noted and diet/exercise modification was recommended for all patients following outside normal parameters. [facility] [address] [place] [address] PAIN MANAGEMENT CONSULTATION Name: MEGAN SMITH [facility] [id number] Admission: 05/23/18 ������������������ Attend Phys: Christy Joy Discharge: ������������������ Date of : 46 Report #: [id number] I reviewed with the patient today their responsibilities to safeguard prescription medications, reviewed their responsibility to utilize medications only as prescribed by the physician. They are to seek and receive pain medications only from 1 physician group ( [facility]). They are to use 1 pharmacy and keep the clinic informed if they change pharmacies. Their responsibilities include making followup visits in a timely fashion and to avoid abrupt discontinuation of medication usage. Their responsibilities further include bringing their medications (bottles from the pharmacy with residual pills) to the visit for possible confirmation of pill counts and the patient understands it is their responsibility to submit to random drug screens to ensure both that the medications prescribed are present, and that no other controlled substances are present. All prescriptions provided today were generated electronically. PLAN: 1. We discussed treatment options with the patient today. The patient tells me that she is doing well on her current fentanyl 25 mcg patches. This places her current MME at 60 MME per day, but in the guidelines 50-90. Therefore, we will see her every 3 months for her medications. Scripts given today for 10 patches to be released today for an 8-week as well as her Codeine No. 3, Tylenol No. 3, #90 with 2 additional refills. The patient tells me that she is hopeful that she can decrease her fentanyl patches strength again in the near future. 2. The patient is talking to me in quite depth about increasing her activity. She is going to try and start walking again. She is working with physical therapist to get a special shoe to make to get her gait and height; therefore feet are even that will adjust her gait and help her lower back pain. The patient tells me she just had this revelation that she needed to get up and move in the past few days and had has just started working on this plan. She is hopeful that the next time she comes in that maybe she will be walking with a walker. 3. The patient seen with Dr. Dom Tian today, who collaborated care. ��������������������������������������������� <ELECTRONICALLY SIGNED> ���������������������������������������� By: Christy Joy ��������������������������������������������� 05/27/18 0758 [id number] Christy Joy /grady
== END ==
LOC: PAIN 07:02
DX: M79.605 Pain in left leg (principal); G89.29 Other chronic pain; Z96.652 Presence of left artificial knee joint; Z79.899 Other long term (current) drug therapy

== ENCOUNTER → 2018-09-09 | Outpatient (CLI) | payer OTHER ==
[2018-09-09 10:31] VITALS: BP 119/53
--- NOTE | 2018-09-09 10:42 | NUR ---
Pain Clinic Assessment: 1. History of Osteoarthritis: KNEES HIPS TOES FINGERS History of Rheumatoid Arthritis: Not Applicable 2. Height: 5 ft. 9 in. 175.3 cm. Weight: lb. oz. kg. Patient's BMI: 3. Vital Signs: BP: 119/53 Pulse: 51 Resp: 16 Temp: 02 Sat: 100 ECG Mon: 4. Pain Intensity: 5 5. Fall Risk: Dizziness: Y Needs help standing or walking: Y Fallen in the last 3 months: N Fall risk comments: 6. Patient on Blood Thinner: None 7. History of Hypertension: Y 8. Opioid Therapy greater than 6 weeks: Y Opiate Contract Signed: 11/22/17 9. Risk Assessment Tool Provided: *3 LOW RISK 10. Functional Assessment Tool: 11. Recreational Drug Use: Never Drug Type: Tobacco Use: Never Smoker Tobacco Type: Amount or Packs/day: How Many Years: Alcohol Use: No Frequency: Quant:
--- NOTE | 2018-09-10 08:09 | HPC ---
[facility] [address] [place] [address] PAIN MANAGEMENT CONSULTATION Name: MEGAN SMITH Room #: REG FRANSICO Patel#: [id number] Admission: 09/09/18 ������������������ Attend Phys: Christy Joy Discharge: ������������������ Date of : 46 Report #: [id number] THIS REPORT FOR: //name// CC: Christy Pierce MD DATE OF SERVICE: 09/09/2018 CHIEF COMPLAINT: Chronic lower extremity pain, status post left knee replacement with complications. HISTORY OF PRESENT ILLNESS: This is a pleasant 68-year-old female who returns to the pain clinic today for refill of her fentanyl patches that she finds very beneficial in controlling some of her ongoing chronic pain. She does have lymphedema in her legs. They are both wrapped today and wearing her lymphedema stockings. She tells me that she these are not as beneficial as her previous ones. She has an appointment to see Dr. Nito Dugan to hopefully use a different brand that would be more beneficial in reducing her lymphedema, but she does use her pump daily on her legs. The patient tells me most of her pain is in her left hip and left knee. It is an aching, sharp pain, rating at 5/10. She tells me that she is going to see Dr. Fox tomorrow regarding her left hip and knee. She has been trying to work with physical therapy, but that recent prescription , so she is hopeful after seeing him tomorrow, she will be able to restart physical therapy with very definite plans to help with her balance. She does feel like she has a fear of falling, which does limit her mobility. She has an electric wheelchair today, but she does use a manual wheelchair at home and does have a caregiver that is there present when she is trying to do her exercises and stand and pivot throughout the day. Today, she would like a refill of her fentanyl patches. ALLERGIES: SULFA, HYDROCODONE, OXYCODONE, ADHESIVE, GABAPENTIN AND LYRICA. CURRENT LIST OF MEDICATIONS: Fentanyl 25 mcg patches every 72 hours, Tylenol No.3 at 2-3 times a day, Toprol-XL 25 mg daily, MiraLax daily, Celebrex daily, Cymbalta 30 mg daily, vitamin C, Levoxyl 150 mcg daily, Lipitor 40 mg at bedtime and Zoloft 100 mg at bedtime. PQRS: 1. She has a history of osteoarthritis in her knees, hips, hands and feet. Denies rheumatoid arthritis. 2. Height is 5 feet 9 inches, weight is not weighed today, deferred. 3. Vital signs: Blood pressure 119/53, pulse is 51, respirations 16, oxygen sat is 100%. 4. Pain score is 5/10. [address] [address] PAIN MANAGEMENT CONSULTATION Name: MEGAN SMITH Room #: REG [facility] Amanda#: [id number] Admission: 09/09/18 ������������������ Attend Phys: Christy Joy Discharge: ������������������ Date of : 46 Report #: [id number] 5. Complains of dizziness, does need help with walking and standing and is in electric wheelchair today. Has not fallen in the last 3 months. 6. The patient is not on any blood thinners, does have a history of hypertension. 7. Opioid therapy is greater than 6 weeks; therefore, an opiate signed contract is on the chart. Her risk assessment tool is low. Functional assessment is 33/70. 8. Recreational drug use, she denies. She is not a smoker and does not drink alcohol. We did check the prescription monitoring system. The patient is filling appropriately and is due for her fentanyl patches today. PHYSICAL EXAMINATION: GENERAL: This is alert and orientated 68-year-old, tearful at times today, who appears her stated age. HEENT: Normocephalic, atraumatic. Extraocular eye muscles are intact. EXTREMITIES: Complains of left leg pain. Both legs are wrapped with lymphedema stockings. She tells me she has tenderness in her left knee pain that radiates from her hip down to her foot on her left side. She has an electric wheelchair today. We reviewed the fact that opiate medications are being used to provide analgesia adequate to support activities of daily living, not attempting to achieve a specific pain score on the 0-10 Visual Analog Scale. The current opiate medications are providing sufficient analgesia to allow the patient to participate in activities of daily living. The patient is not exhibiting any aberrant behavior suggestive of drug diversion. The patient is not having any adverse reactions to medications. The patient is not suffering from daytime somnolence or mental acuity changes. The patient is managing opiate-induced constipation with appropriate vegf-hzk-bbffbaa agents and dietary considerations. The patient was counseled on concern for caution with operating a motor vehicle while using opiate medications. A physical exam was performed and the patient's functional status was evaluated. All patients with back pain were advised against the bed rest greater than 4 days and were advised to return to normal activities. Pain score assessment was noted and the treatment plan was reviewed with the patient. All current medications, both prescribed and OTC were reviewed and reconciled on the electronic medical record. Tobacco screening was accomplished and smoking cessation was advised when indicated. BMI was noted and diet/exercise modification was recommended for all patients following outside normal parameters. I reviewed with the patient today their responsibilities to safeguard prescription medications, reviewed their responsibility to utilize medications [facility] [address] [place] [address] PAIN MANAGEMENT CONSULTATION Name: MEGAN SMITH Room #: REG [facility] M.R.#: [id number] Admission: 09/09/18 ������������������ Attend Phys: Christy Joy Discharge: ������������������ Date of : 46 Report #: [id number] only as prescribed by the physician. They are to seek and receive pain medications only from 1 physician group ( [facility]). They are to use 1 pharmacy and keep the clinic informed if they change pharmacies. Their responsibilities include making followup visits in a timely fashion and to avoid abrupt discontinuation of medication usage. Their responsibilities further include bringing their medications (bottles from the pharmacy with residual pills) to the visit for possible confirmation of pill counts and the patient understands it is their responsibility to submit to random drug screens to ensure both that the medications prescribed are present, and that no other controlled substances are present. All prescriptions provided today were generated electronically. IMPRESSION: 1. Chronic intractable pain, status post left knee replacement with complications, now with permanent replacement of knee. 2. Situational depression. 3. Management of high risk medications under terms of written opioid agreement. PLAN: 1. We discussed treatment options with the patient today. The patient is tearful at times throughout the visit because she had set goals for her mobility status and has not been able to reach them. She is fearful of falling and that does aid in some of this depression because she does not feel like she could be as mobile as she would like. The patient is going to see Dr. Fox tomorrow to see about restarting physical therapy and if there is a plan for possible surgical options or other plans for treatment. 2. Pain is controlled with her fentanyl patches, so we renewed those today for 25 mcg, #10 for today, for an 8-week release as well as her Tylenol No. 3 #90 with 2 additional refills. This places the patient at 60 morphine milligram equivalents according to the CDC guidelines. The patient is seen every 3 months due to her limited mobility. The patient was seen by Dr. Dom Tian who collaborated care today. The patient will return for followup in 3 months' time. ��������������������������������������������� <ELECTRONICALLY SIGNED> ���������������������������������������� By: Christy Joy ��������������������������������������������� 09/10/18 0809 [id number] 1955 Christy Joy /nt
== END ==
LOC: PAIN 10:00
DX: M25.562 Pain in left knee (principal); Z96.652 Presence of left artificial knee joint

== ENCOUNTER → 2018-11-28 | Outpatient (CLI) | payer OTHER ==
[~2018-11-28] MED LIST changes: +APAP W/CODEINE1 TA2 PO
[2018-11-28 11:11] VITALS: BP 147/66
--- NOTE | 2018-11-28 11:18 | NUR ---
Pain Clinic Assessment: 1. History of Osteoarthritis: KNEES HIPS TOES FINGERS History of Rheumatoid Arthritis: Not Applicable 2. Height: ft. in. cm. Weight: lb. oz. kg. Patient's BMI: 3. Vital Signs: BP: 147/66 Pulse: 60 Resp: 14 Temp: 02 Sat: 94 ECG Mon: 4. Pain Intensity: 7 5. Fall Risk: Dizziness: N Needs help standing or walking: Y Fallen in the last 3 months: N Fall risk comments: 6. Patient on Blood Thinner: None 7. History of Hypertension: Y 8. Opioid Therapy greater than 6 weeks: Y Opiate Contract Signed: 11/22/17 9. Risk Assessment Tool Provided: *3 LOW RISK 10. Functional Assessment Tool: 11. Recreational Drug Use: Never Drug Type: Tobacco Use: Never Smoker Tobacco Type: Amount or Packs/day: How Many Years: Alcohol Use: No Frequency: Quant:
--- NOTE | 2018-12-09 07:54 | HPC ---
[facility] [address] [place] [address] PAIN MANAGEMENT CONSULTATION Name: MEGAN SMITH Room #: REG ALVAROHarpal Stanford.#: [id number] Admission: 11/28/18 Attend Phys: Christy Joy Discharge: Date of : 46 Report #: [id number] THIS REPORT FOR: //name// CC: Christy Tian MD DATE OF SERVICE: 11/28/2018 CHIEF COMPLAINT: Chronic lower extremity pain, status post left knee replacement with complications and left hip pain. HISTORY OF PRESENT ILLNESS: This is a 68-year-old female who returns to the pain clinic for refill of her medications that she uses to help treat her ongoing chronic pain. She reports a pain score of 7/10 today, mostly in her left hip and left knee, but also has some ongoing right ankle pain. She does suffer from lymphedema as well and has significant swelling in her lower extremities. They are wrapped today and wearing a lymphedema stockings. She reports that her pain is a sharp, achy pain that is worse with sitting and lying down, but is better when she uses heat and repositions herself as well as using her lymphedema pumps. The patient reports that she has not been doing physical therapy on an outpatient basis. They are trying to continue her exercises at home. She had maxed out on her benefits for physical therapy, so she does continue those at home just not as vigorously as she would have when she works with a therapist. ALLERGIES: SULFA, HYDROCODONE, OXYCODONE, ADHESIVE TAPE, GABAPENTIN AND LYRICA. CURRENT LIST OF MEDICATIONS: Fentanyl patch 25 mcg every 72 hours, Tylenol No. 3 p.r.n., Toprol-XL 25 mg daily, MiraLax p.r.n., Celebrex 200 mg daily, Cymbalta 30 mg at bedtime, vitamin C daily, Levoxyl 150 mcg daily and Zoloft 200 mg at bedtime. PQRS: 1. She has a history of osteoarthritis in her knees, hips, hands and feet. Denies any rheumatoid arthritis. We did not weigh her today. 2. Vital signs, blood pressure 147/66, pulse is 60, respirations 14, oxygen sat is 94. 3. Pain score 7/10. 4. Denies dizziness. Does need help walking. She is in an electric wheelchair presently today. She has not fallen in the last 3 months. 5. The patient is not on any blood thinners, but does take medicine for hypertension. 6. Opioid therapy is greater than 6 weeks; therefore, an opioid signed contract [address] [address] PAIN MANAGEMENT CONSULTATION Name: MEGAN SMITH Room #: REG FRANSICO Patel#: [id number] Admission: 11/28/18 Attend Phys: Christy Joy Discharge: Date of : 46 Report #: [id number] is on the chart. Risk assessment tool is low. Functional assessment is 33/70. 7. Recreational drug use, she denies. She is not a smoker and does not drink alcohol. According to the prescription monitoring system, the patient is filling appropriately for her medications. PHYSICAL EXAMINATION: GENERAL: This is alert and orientated 68-year-old female who appears her stated age, placing her current pain score today at 7/10. HEENT: Normocephalic, atraumatic. Extraocular eye muscles are intact. Mucous membranes are moist. EXTREMITIES: She has tenderness along her left leg and left knee that radiates to her foot. She has significant edema in her bilateral legs and restricted movement in them. Her legs are both wrapped with lymphedema stockings. Today, she is in electric wheelchair. IMPRESSION: 1. Chronic intractable pain, status post left knee replacement with complications, now with permanent replacement of this with complications. 2. Situational depression. 3. Management of high risk medications under terms of written opioid agreement. We reviewed the fact that opiate medications are being used to provide analgesia adequate to support activities of daily living, not attempting to achieve a specific pain score on the 0-10 Visual Analog Scale. The current opiate medications are providing sufficient analgesia to allow the patient to participate in activities of daily living. The patient is not exhibiting any aberrant behavior suggestive of drug diversion. The patient is not having any adverse reactions to medications. The patient is not suffering from daytime somnolence or mental acuity changes. The patient is managing opiate-induced constipation with appropriate cjmk-mdy-vgdxgsu agents and dietary considerations. The patient was counseled on concern for caution with operating a motor vehicle while using opiate medications. A physical exam was performed and the patient's functional status was evaluated. All patients with back pain were advised against the bed rest greater than 4 days and were advised to return to normal activities. Pain score assessment was noted and the treatment plan was reviewed with the patient. All current medications, both prescribed and OTC were reviewed and reconciled on the electronic medical record. Tobacco screening was accomplished and smoking cessation was advised when indicated. BMI was noted and diet/exercise modification was recommended for all patients following outside normal parameters. I reviewed with the patient today their responsibilities to [address] [address] PAIN MANAGEMENT CONSULTATION Name: MEGAN SMITH Room #: NIKI Patel#: [id number] Admission: 11/28/18 Attend Phys: Christy Joy Discharge: Date of : 46 Report #: [id number] prescription medications, reviewed their responsibility to utilize medications only as prescribed by the physician. They are to seek and receive pain medications only from 1 physician group ( [facility]). They are to use 1 pharmacy and keep the clinic informed if they change pharmacies. Their responsibilities include making followup visits in a timely fashion and to avoid abrupt discontinuation of medication usage. Their responsibilities further include bringing their medications (bottles from the pharmacy with residual pills) to the visit for possible confirmation of pill counts and the patient understands it is their responsibility to submit to random drug screens to ensure both that the medications prescribed are present, and that no other controlled substances are present. All prescriptions provided today were generated electronically. PLAN: 1. We discussed treatment options with the patient today. The patient finds the fentanyl beneficial. She does have occasional flares in her pain and does take the Tylenol No. 3 as needed, some days not needing 3 tablets a day, other days requiring 4. I explained to her that is the benefit of as needed pain medications when she takes it on a basis when her pain is increased. Scripts given today for fentanyl 25 mcg, #10 for today, 4-week and 8-week release and codeine with Tylenol No. 3, #90 with one additional refill since the patient just filled her last 90 pills from her previous visit. 2. We did discuss physical therapy that is prescribed by another doctor, but she had maxed out for insurance purposes. I did give her a pamphlet of location, direct PT that charge her on a monthly basis instead of per visit. The patient tells me she will look in to this option. 3. The patient is seen in collaboration today with Dr. Dom Tian. The patient will return in 3 months. <ELECTRONICALLY SIGNED> By: Christy Joy 12/09/18 0754 1204 0027 Christy Joy /nt
== END ==
LOC: PAIN 06:52
DX: G89.4 Chronic pain syndrome (principal); F43.21 Adjustment disorder with depressed mood; Z79.891 Long term (current) use of opiate analgesic; Z88.2 Allergy status to sulfonamides; Z88.8 Allergy status to other drugs, medicaments and biological substances; Z79.899 Other long term (current) drug therapy; Z96.642 Presence of left artificial hip joint

== ENCOUNTER → 2019-02-11 | Outpatient (CLI) | payer OTHER ==
[2019-02-11 10:07] VITALS: BP 119/63
--- NOTE | 2019-02-11 10:49 | NUR ---
Pain Clinic Assessment: 1. History of Osteoarthritis: KNEES HIPS TOES FINGERS History of Rheumatoid Arthritis: Not Applicable 2. Height: ft. in. cm. Weight: lb. oz. kg. Patient's BMI: 3. Vital Signs: BP: 119/63 Pulse: 54 Resp: 16 Temp: 02 Sat: 95 ECG Mon: 4. Pain Intensity: 7 5. Fall Risk: Dizziness: N Needs help standing or walking: Y Fallen in the last 3 months: N Fall risk comments: 6. Patient on Blood Thinner: None 7. History of Hypertension: Y 8. Opioid Therapy greater than 6 weeks: Y Opiate Contract Signed: 11/22/17 9. Risk Assessment Tool Provided: *3 LOW RISK 10. Functional Assessment Tool: 11. Recreational Drug Use: Never Drug Type: Tobacco Use: Never Smoker Tobacco Type: Amount or Packs/day: How Many Years: Alcohol Use: No Frequency: Quant:
--- NOTE | 2019-02-11 15:28 | HPC ---
[facility] [address] [address] PAIN MANAGEMENT CONSULTATION Name: MEGAN SMITH Room #: REG Harpal Stanford.#: [id number] Admission: 02/11/19 Attend Phys: Christy Joy Discharge: Date of : 46 Report #: [id number] THIS REPORT FOR: //name// CC: Christy Tian MD DATE OF SERVICE: 02/11/2019 CHIEF COMPLAINT: Chronic lower extremity pain, status post left knee replacement and left hip pain. HISTORY OF PRESENT ILLNESS: This is a 68-year-old female who returns to the pain clinic today. She is tearful through some of our visit today reporting that she would like to be able to walk again and does not feel safe standing at home by herself. She has not been able to go to physical therapy outside the home because her benefits had or reached their maximum I am unsure. She reports she does do exercises at home, but not any standing or walking. She does report today a pain score of 7/10 today in her left hip and left thigh. She tells me that she has some arthritic changes in her hands and feet that do cause some discomfort as well. She feels that the fentanyl patch does benefit most of her pain and is helpful except for her hand and foot pain, which she does take Celebrex for. She is utilizing her Tylenol No. 3 as well. Some days, taking as many as 6 per her report. Other days, not taking as many. She is prescribed a 90 pill count for a 30-day supply. The patient is in a wheelchair present today. She does have pain in her left hip and thigh that is rating a 7/10 that is an aching, sharp pain, worse with cold and lying down. She feels that medication as well as repositioning and using a heating pad are very beneficial. She reports that right over here by the wheelchair van does increase her pain. Today, she is needing refills of her current medication regimen. ALLERGIES: SULFA, HYDROCODONE, OXYCODONE, ADHESIVE TAPE, GABAPENTIN AND LYRICA. CURRENT LIST OF MEDICATIONS: Fentanyl patch 25 mcg, Codeine No. 3, Toprol-XL, MiraLax, Celebrex, Cymbalta, vitamin C, Levoxyl and Zoloft. PQRS: 1. History of osteoarthritis in her knees, hips, hands and feet. Denies any rheumatoid arthritis. We did not weigh her today. 2. Vital signs 119/63, pulse is 54, respirations 16, oxygen sat is 95. 3. Pain score is 7/10. 4. Denies dizziness. Does need help walking in a wheelchair presently today, has not fallen in the last 3 months. [facility] [address] [place] [address] PAIN MANAGEMENT CONSULTATION Name: MEGAN SMITH Room #: REG CL Amanda#: [id number] Admission: 02/11/19 Attend Phys: Christy Joy Discharge: Date of : 46 Report #: [id number] 5. The patient is not on any blood thinners, but does take medicine for hypertension. 6. Opiate therapy is greater than 6 weeks; therefore, an opioid signed contract is on the chart. Risk assessment tool is low. Functional assessment is 33/70. 7. Recreational drug use, she denies. She is not a smoker and does not drink alcohol. According to the prescription monitoring system, the patient is filling appropriately. She reports she safeguards her meds at all times. PHYSICAL EXAMINATION: GENERAL: This is alert and orientated 68-year-old female who is tearful through part of our discussion today reporting her pain score at 7/10. HEENT: Normocephalic, atraumatic. Extraocular eye muscles are intact. EXTREMITIES: She has tenderness in her left hip that radiates to her left knee. She has edema present in her bilateral legs with restricted range of motion in them bilaterally. Her legs are wrapped with lymphedema stockings. She is in an electric wheelchair today. IMPRESSION: 1. Chronic intractable pain, status post knee replacement with complications. 2. Situational depression. 3. Management of high risk medications under written opioid agreement. 4. Osteoarthritis. We reviewed the fact that opiate medications are being used to provide analgesia adequate to support activities of daily living, not attempting to achieve a specific pain score on the 0-10 Visual Analog Scale. The current opiate medications are providing sufficient analgesia to allow the patient to participate in activities of daily living. The patient is not exhibiting any aberrant behavior suggestive of drug diversion. The patient is not having any adverse reactions to medications. The patient is not suffering from daytime somnolence or mental acuity changes. The patient is managing opiate-induced constipation with appropriate ntlb-bha-wtvzlem agents and dietary considerations. The patient was counseled on concern for caution with operating a motor vehicle while using opiate medications. PLAN: 1. We discussed treatment options with the patient today. I encouraged the patient to continue her physical therapy at home, her exercises that she is able to do. The patient does report that she does everything, but standing. She is afraid of falling. 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 Uses a slide board to move from the wheelchair to bed. Per the patient's report, she contacted the physical therapy business that we recommended. She reports they are no longer taking new patients. She is hopeful that in the New Year once her benefits renew, she will [facility] [address] [place] [address] PAIN MANAGEMENT CONSULTATION Name: MEGAN SMITH Room #: REG FRANSICO Stanford.#: [id number] Admission: 02/11/19 Attend Phys: Christy Joy Discharge: Date of : 46 Report #: [id number] be able to restart physical therapy and try to overcome her fear of standing without falling with the therapist. She would like to be able to walk again per her report. 2. We will refill her medications of fentanyl 25 mcg patch #10 for today 4-week and 8-week release as well as Codeine No. 3. The patient reports she is taking 6 a day on some days. I explained to her that the maximum is 90 in a month. So if she does take 6, which I encouraged her to decrease that amount. Other days, she is not able to take any or only one a day. The patient verbalizes understanding. She will try to decrease the amount that she is taking 3. The patient is seen today in collaboration with Dr. Dom Tian. The patient will return in 3 months. Hopefully, she will have restarted her physical therapy in February. <ELECTRONICALLY SIGNED> By: Christy Joy 02/11/19 1528 1105 1437 Christy Joy /grady
== END ==
LOC: PAIN 08:45
DX: G89.4 Chronic pain syndrome (principal); F43.21 Adjustment disorder with depressed mood; M17.12 Unilateral primary osteoarthritis, left knee; Z79.891 Long term (current) use of opiate analgesic

== ENCOUNTER → 2019-05-07 | Outpatient (CLI) | payer OTHER | LOC: HYPER 09:52 | DX: I89.0 Lymphedema, not elsewhere classified (principal); R26.89 Other abnormalities of gait and mobility; M81.0 Age-related osteoporosis without current pathological fracture; H26.9 Unspecified cataract; Z96.652 Presence of left artificial knee joint ==

== ENCOUNTER → 2019-06-19 | Outpatient (CLI) | payer OTHER ==
[~2019-06-19] MED LIST changes: +ALENDRONATE SOD70 MG PO; +ROSUVASTATIN CA20 MG PO
--- NOTE | ~2019-06-19 | HPC ---
[facility] [place] [address] [place] [address] PAIN MANAGEMENT CONSULTATION Name: MEGAN SMITH Room #: REG FRANSICO M.Justina.#: [id number] Admission: 06/19/19 Attend Phys: Dom Tian MD Discharge: Date of : 46 Report #: [id number] THIS REPORT FOR: cc: Cristina Pierce MD, Kristin E. MD Morgan,Dom Carson MD ~ CC: Cristina Tian DATE OF SERVICE: 06/19/2019 TELEMEDICINE CONFERENCE TIME: 925 through 944 via [employer]. Followup visit for chronic low back pain, chronic lower extremity pain, status post knee replacement with complications 2015 and chronic left hip pain. The patient is seen today on teleconference. We used [employer] as our communication. Also present and available throughout the consultation with her sister, Dr. Mihaela Rodriguez. I provided medications for her under terms of written agreement. She is receiving fentanyl 25 mcg q. 72 hours. She uses acetaminophen/codeine #3 one tablet q. 8 hours for breakthrough pain. Breakthrough medications have accelerated over the course of the last several months. She has also noticed that like about 15-20% of our patients the patch efficacy declines in the third day. This is when she uses most of her breakthrough medications and also her breakthrough strategies including the use of ice. With the benefit of pain medication, she has been continuing with physical therapy on her own at home. She has goals of walking with a walker and also pivoting to commode on her own. Over the course of the last 7 weeks, she has continued to make some gradual progress and can now stand for 7 minutes. This is a marked improvement. She has been treating constipation with vzhv-paq-gxyszks regimens including MiraLax and has needed no additional treatment for opioid-induced constipation her only side effect. She is grateful for the pain relief and improvement in daily function. She carefully safeguards her medication and takes them with the assistance of her sister, Dr. Rodriguez. PHYSICAL EXAMINATION: Today, she is afebrile. Vital signs were not taken during my presence, but Dr. Rodriguez has taken them and says they are within normal limits for her. Her last blood pressure in our office was around 120/60, [address] [address] PAIN MANAGEMENT CONSULTATION Name: MEGAN SMITH Room #: REG [facility] Hien.#: [id number] Admission: 06/19/19 Attend Phys: Dom Tian MD Discharge: Date of : 46 Report #: [id number] heart rate 50-60. She is pleasant, alert and oriented. She gives a good history. There is no evidence of overmedication sedation or anxiety. IMPRESSION: 1. Chronic intractable pain, status post knee replacement with complications. 2. Situational depression, improved. 3. Management of high risk medications under terms of opioid agreement. 4. Severe osteoarthritis. PLAN: I will renew her fentanyl patches, but we will renew 15 per month and she will change them at 48-hour intervals. This has been helpful for our patients for whom the third day seems to be much more severe. We will continue with Tylenol No. 3 one tablet q. 8 hours as needed for breakthrough pain. Hopefully, the change in her baseline fentanyl will make a difference. I plan to follow up either by teleconference or in person in 3 months. Time spent directly [id number] on Telemedicine 19 minutes from 09 to 944. By: [id number] Dom Tian MD /nt
== END ==
LOC: TELEPC 07:32 → PAIN 11:44
DX: M54.5 Low back pain (principal); M19.90 Unspecified osteoarthritis, unspecified site; F11.20 Opioid dependence, uncomplicated; F32.9 Major depressive disorder, single episode, unspecified; G89.29 Other chronic pain; Z79.899 Other long term (current) drug therapy

== ENCOUNTER → 2019-09-29 | Outpatient (CLI) | payer OTHER ==
--- NOTE | 2019-09-30 08:50 | HPC ---
[facility] [address] [address] PAIN MANAGEMENT CONSULTATION Name: MEGAN SMITH Room #: REG FRANSICO Stanford.#: [id number] Admission: 09/29/19 Attend Phys: Christy Joy Discharge: Date of : 46 Report #: [id number] THIS REPORT FOR: cc: Cristina Pierce MD, Kristin E. MD Hocker, Amanda CNS ~ CC: Dom Tian MD DATE OF SERVICE: 09/29/2019 This is a telemedicine appointment from 9:25-9:40 that the patient has agreed upon and also present throughout the visit is Dr. Mihaela Rodriguez. CHIEF COMPLAINT: Chronic low back pain, chronic lower extremity pain post post-knee replacement with complications. HISTORY OF PRESENT ILLNESS: This is a very pleasant 69-year-old female that I am speaking with via [employer] for a telemedicine appointment. Today, she is rating her pain score of 6/10. She feels that she is having better pain control since her change of fentanyl patches from every 72 hours to every 48 hours. She was having end of dose failure and was having significant pain on her third day. She believes that her pain is more stable and has evened out. She feels that the switch has been very beneficial. She continues to use her Tylenol with Codeine as well. She denies any problems with constipation. She uses fruit or prunes and tries to avoid fvjt-aff-llyrsth medications. Today, she says that her left hip is her most problematic area, but she has been having some ongoing right shoulder pain that is achy from arthritis and as well as from trying to move herself as well. The patient continues to work on standing. She does pivot. She has not been walking yet, that is a long-term goal, but she did have a bout of the flu, not COVID related, that did set her back. She was not very mobile during that time, but she continues to try to be as active as possible. Her sister has been helping her with some exercises for her shoulder as well. ALLERGIES: SULFA, HYDROCODONE, OXYCODONE, ADHESIVE TAPE, GABAPENTIN AND LYRICA. CURRENT LIST OF MEDICATIONS: Fentanyl patch 24 25 mcg every 48 hours, Codeine No. 3, Toprol, Celebrex, Cymbalta, vitamin C, levothyroxine, and Zoloft. PQRS: 1. She has arthritic changes in her hips, knees and spine. Denies any rheumatoid arthritis. 2. Height, weight and vital signs were deferred due to a telemedicine appointment. Pain score today is 6/10. Denies dizziness. Does need help with ambulation. She is in a walker. She has not fallen in the last 3 months[address] The [address] [address] PAIN MANAGEMENT CONSULTATION Name: MEGAN SMITH Room #: REG CLHarpal Patel#: [id number] Admission: 09/29/19 Attend Phys: Christy Joy Discharge: Date of : 46 Report #: [id number] patient is not on any blood thinners, but takes medicine for hypertension. Her opioid therapy is greater than 6 weeks; therefore, an opioid signed contract is on the chart. Risk assessment is low. Functional assessment is 33/70. 3. Recreational drug use, she denies. She is not a smoker and does not drink alcohol. PHYSICAL EXAMINATION: This is a telemedicine appointment so it is review of systems. She is alert and orientated, answering all my questions appropriately. She is a good historian with no signs of overmedication. She states that she has pain in her left hip, especially when standing, discomfort in her right shoulder with movement. IMPRESSION: 1. Chronic intractable pain, status post knee replacement with complications. 2. Situational depression. 3. Severe osteoarthritis. 4. Right shoulder pain. 5. Management of high risk medications under terms of written opioid agreement. We reviewed the fact that opiate medications are being used to provide analgesia adequate to support activities of daily living, not attempting to achieve a specific pain score on the 0-10 Visual Analog Scale. The current opiate medications are providing sufficient analgesia to allow the patient to participate in activities of daily living. The patient is not exhibiting any aberrant behavior suggestive of drug diversion. The patient is not having any adverse reactions to medications. The patient is not suffering from daytime somnolence or mental acuity changes. The patient is managing opiate-induced constipation with appropriate kmdv-rlo-cvwcwom agents and dietary considerations. The patient was counseled on concern for caution with operating a motor vehicle while using opiate medications. PLAN: 1. The patient has found the increase of her fentanyl from 72 hours to 48 hours very beneficial and would like to continue at that dose. We will have Dr. Dom Tian send this prescription to her pharmacy for 25 mcg, #15 for today, 4-week and 8-week supply as well as her codeine with Tylenol #90 with 2 additional refills. 2. I encouraged the patient to try and be as active as possible. Continue her standing and her exercises for her shoulder. The patient's sister states that she will continue to work with her on those issues as well. 3. The patient will return to clinic for her next appointment in 3 months. The [facility] [address] [place] [address] PAIN MANAGEMENT CONSULTATION Name: MEGAN SMITH Room #: NIKI BATEMAN Amanda#: [id number] Admission: 09/29/19 Attend Phys: Christy Joy Discharge: Date of : 46 Report #: [id number] patient discussed via this Telemed appointment in collaboration with Dr. Dom Tian. <ELECTRONICALLY SIGNED> By: Christy Joy 09/30/19 0850 0947 1021 Christy Joy /nt
== END ==
LOC: TELEPC 06:46 → PAIN 09:55 → TELEPC 10:11
PROVIDERS: ATTEND Clinical Nurse Specialist Adult Health
DX: M54.5 Low back pain (principal); M79.669 Pain in unspecified lower leg; G89.29 Other chronic pain; F32.9 Major depressive disorder, single episode, unspecified; M19.90 Unspecified osteoarthritis, unspecified site; M25.511 Pain in right shoulder; F11.20 Opioid dependence, uncomplicated; Z96.651 Presence of right artificial knee joint; Z88.8 Allergy status to other drugs, medicaments and biological substances; Z79.899 Other long term (current) drug therapy

== ENCOUNTER → 2019-12-18 | Outpatient (CLI) | payer OTHER ==
[2019-12-18 13:21] VITALS: BP 145/71
--- NOTE | 2019-12-18 13:54 | NUR ---
Pain Clinic Assessment: 1. History of Osteoarthritis: KNEES HIPS TOES FINGERS History of Rheumatoid Arthritis: Not Applicable 2. Height: ft. in. cm. Weight: lb. oz. kg. Patient's BMI: 3. Vital Signs: BP: 145/71 Pulse: 57 Resp: 16 Temp: 02 Sat: 97 ECG Mon: 4. Pain Intensity: 5 5. Fall Risk: Dizziness: N Needs help standing or walking: Y Fallen in the last 3 months: Y Fall risk comments: 6. Patient on Blood Thinner: None 7. History of Hypertension: Y 8. Opioid Therapy greater than 6 weeks: Y Opiate Contract Signed: 11/22/17 9. Risk Assessment Tool Provided: *3 LOW RISK 10. Functional Assessment Tool: 11. Recreational Drug Use: Never Drug Type: Tobacco Use: Never Smoker Tobacco Type: Amount or Packs/day: How Many Years: Alcohol Use: No Frequency: Quant:
--- NOTE | 2019-12-19 08:35 | HPC ---
[facility] [address] [place] [address] PAIN MANAGEMENT CONSULTATION Name: MEGAN SMITH Room #: REG ALVAROHarpal Stanford.#: [id number] Admission: 12/18/19 Attend Phys: Christy Joy Discharge: Date of : 46 Report #: [id number] CC: Christy Tian MD DATE OF SERVICE: 12/18/2019 CHIEF COMPLAINT: Chronic low back pain, chronic lower extremity pain, status post knee replacement with complications and chronic hip pain. HISTORY OF PRESENT ILLNESS: This is a 69-year-old female who is returning to the pain clinic today for refill of her medications. Today, she is reporting her pain level of 5/10 most problematic in her left hip and knee from previous complications of surgery. She also suffers from lymphedema, which is very uncomfortable in her lower extremities and is wearing braces and socks on them today. She finds that the medications are helpful, especially her fentanyl patch. She does that time utilizing Tylenol No. 3 for her breakthrough pain medicine. She denies problems with constipation or daytime somnolence as a result of these medications. The patient is tearful throughout part of our visit today. She reports that it has just been getting increasingly difficult to be mobile in her house. She has not been able to keep a good physical therapist or help during this COVID outbreak, so therefore she has been more time alone at home in her room, though her sister has been very beneficial in helping her. She tries to stand on a daily basis, but is worried about falling. She is in a wheelchair today. ALLERGIES: SULFA, HYDROCODONE, OXYCODONE, ADHESIVE TAPE, GABAPENTIN AND LYRICA. CURRENT LIST OF MEDICATIONS: Fentanyl 25 mcg patch every 48 hours, Tylenol No. 3, Crestor, Toprol, MiraLax, Celebrex, Cymbalta, vitamin C, levothyroxine, and Zoloft. PQRS: 1. She has osteoarthritis of her hips, shoulders and knees. Denies rheumatoid arthritis. 2. Height is 5 feet 3 inches, weight is 233, BMI is 41. 3. Vital signs; blood pressure 125/76, pulse is 83, respirations 18, oxygen sat is 97%. 4. Pain score is 3/10 when walking. 5. Denies dizziness. Does need significant assistance with mobility, in a wheelchair today, has not fallen in the last 3 months. 6. The patient is not on any blood thinners, but does take medicine for hypertension. 7. Her opioid therapy is greater than 6 weeks. Risk assessment is low. Functional assessment is 8. Recreational drug use, she denies. She is not a smoker and does not drink alcohol. According to her prescription monitoring system, she is due to fill her medications next week, filling them in a timely fashion from Dr. Dom Tian. Her morphine milliequivalent according to the CDC guidelines is 100 morphine milliequivalents per day. PHYSICAL EXAMINATION: GENERAL: This is alert and orientated, slightly tearful, but pleasant 69-year-old female rating her pain score at 2-3/10 today. HEENT: Normocephalic, atraumatic. Extraocular eye muscles are intact. She is wearing a mask. EXTREMITIES: Pain radiates from her left leg to her foot. Legs are protected with lymphedema stockings and braces. She has tenderness in her hip along the lateral aspect of her leg. She has restricted motion in her lower extremities with significant edema noted in her lower extremities. IMPRESSION: 1. Chronic intractable pain status post knee replacement with complications. 2. Situational depression. 3. Management of high risk medications under terms of written agreement. 4. Severe osteoarthritis. We reviewed the fact that opiate medications are being used to provide analgesia adequate to support activities of daily living, not attempting to achieve a specific pain score on the 0-10 Visual Analog Scale. The current opiate medications are providing sufficient analgesia to allow the patient to participate in activities of daily living. The patient is not exhibiting any aberrant behavior suggestive of drug diversion. The patient is not having any adverse reactions to medications. The patient is not suffering from daytime somnolence or mental acuity changes. The patient is managing opiate-induced constipation with appropriate [id number] agents and dietary considerations. The patient was counseled on concern for caution with operating a motor vehicle while using opiate medications. PLAN: 1. We discussed treatment options with the patient today. She feels that the fentanyl every 48 hours has been beneficial and we will continue that dose #15 patches for today, 4-week and 8-week, release will be sent electronically by Dr. Dom Tian as well as her Tylenol with Codeine #90 with 2 additional refills. 2. The patient is encouraged to continue to be as active as she is able though it has been difficult with the COVID virus. At times, she is depressed throughout the day today. I encouraged her to be outside if she is able and visit with her sister instead of staying in her room. The patient states that she will try to be out of her room more. She is hopeful to find a caregiver that will help with her standing exercises, but does try to do her own exercises in her room that but she is able. 3. The patient is seen in collaboration with Dr. Dom Tian who she did see as well today. The patient will follow up with him in early March. <ELECTRONICALLY SIGNED> By: Christy Joy 12/19/19 [id number] Christy Joy /grady
== END ==
LOC: PAIN 06:56
PROVIDERS: ATTEND Clinical Nurse Specialist Adult Health
DX: Z76.0 Encounter for issue of repeat prescription (principal); M54.5 Low back pain; G89.29 Other chronic pain; Z96.659 Presence of unspecified artificial knee joint; Z79.891 Long term (current) use of opiate analgesic; Z79.82 Long term (current) use of aspirin; Z79.899 Other long term (current) drug therapy

== ENCOUNTER → 2020-02-23 | Outpatient (CLI) | payer OTHER ==
[~2020-02-23] MED LIST changes: +DILAUDID2 MG PO
--- NOTE | 2020-02-23 10:11 | NUR ---
Pain Clinic Assessment: 1. History of Osteoarthritis: KNEES HIPS TOES FINGERS History of Rheumatoid Arthritis: Not Applicable 2. Height: ft. in. cm. Weight: lb. oz. kg. Patient's BMI: 3. Vital Signs: BP: Pulse: 55 Resp: 18 Temp: 02 Sat: 97 ECG Mon: 4. Pain Intensity: 7 5. Fall Risk: Dizziness: N Needs help standing or walking: Y Fallen in the last 3 months: N Fall risk comments: 6. Patient on Blood Thinner: None 7. History of Hypertension: Y 8. Opioid Therapy greater than 6 weeks: Y Opiate Contract Signed: 11/22/17 9. Risk Assessment Tool Provided: *3 LOW RISK 10. Functional Assessment Tool: 11. Recreational Drug Use: Never Drug Type: Tobacco Use: Never Smoker Tobacco Type: Amount or Packs/day: How Many Years: Alcohol Use: No Frequency: Quant:
== END ==
LOC: PAIN 06:57
PROVIDERS: ATTEND Anesthesiology Pain Medicine
DX: G89.4 Chronic pain syndrome (principal); M25.562 Pain in left knee; F32.9 Major depressive disorder, single episode, unspecified; F11.20 Opioid dependence, uncomplicated

== ENCOUNTER → 2020-04-28 | Outpatient (CLI) | payer OTHER | LOC: HYPER 13:03 | PROVIDERS: ATTEND Emergency Medicine | DX: I89.0 Lymphedema, not elsewhere classified (principal); R60.0 Localized edema; G89.29 Other chronic pain; R26.89 Other abnormalities of gait and mobility; H26.9 Unspecified cataract; M81.0 Age-related osteoporosis without current pathological fracture; Z96.642 Presence of left artificial hip joint; Z96.652 Presence of left artificial knee joint ==

== ENCOUNTER → 2020-06-04 | Outpatient (CLI) | payer OTHER | LOC: SJCVC 13:20 | PROVIDERS: ATTEND Internal Medicine Cardiovascular Disease | DX: I42.2 Other hypertrophic cardiomyopathy (principal); E78.5 Hyperlipidemia, unspecified; I89.0 Lymphedema, not elsewhere classified; R01.1 Cardiac murmur, unspecified; Z82.49 Family history of ischemic heart disease and other diseases of the circulatory system; Z88.2 Allergy status to sulfonamides; Z88.5 Allergy status to narcotic agent; Z88.8 Allergy status to other drugs, medicaments and biological substances; Z79.891 Long term (current) use of opiate analgesic; Z79.899 Other long term (current) drug therapy; Z79.2 Long term (current) use of antibiotics; E03.9 Hypothyroidism, unspecified; F33.9 Major depressive disorder, recurrent, unspecified; Z79.1 Long term (current) use of non-steroidal anti-inflammatories (NSAID) ==

== ENCOUNTER → 2020-06-24 | Outpatient (CLI) | payer OTHER | LOC: TELEPC 11:25 | PROVIDERS: ATTEND Clinical Nurse Specialist Adult Health | DX: G89.4 Chronic pain syndrome (principal); M25.511 Pain in right shoulder; M25.512 Pain in left shoulder; M25.551 Pain in right hip; M25.552 Pain in left hip; F32.9 Major depressive disorder, single episode, unspecified; Z79.891 Long term (current) use of opiate analgesic; Z79.899 Other long term (current) drug therapy ==

== ENCOUNTER → 2020-09-16 | Outpatient (CLI) | payer OTHER | LOC: PAIN 09-15 14:14 → TELEPC 06:59 | PROVIDERS: ATTEND Clinical Nurse Specialist Adult Health | DX: Z76.0 Encounter for issue of repeat prescription (principal); G89.4 Chronic pain syndrome; M19.90 Unspecified osteoarthritis, unspecified site; I10 Essential (primary) hypertension; M25.512 Pain in left shoulder; M25.511 Pain in right shoulder; M25.552 Pain in left hip; F32.9 Major depressive disorder, single episode, unspecified; Z79.899 Other long term (current) drug therapy; Z79.891 Long term (current) use of opiate analgesic; Z88.5 Allergy status to narcotic agent; Z88.2 Allergy status to sulfonamides; Z88.8 Allergy status to other drugs, medicaments and biological substances ==

== ENCOUNTER → 2021-01-03 | Outpatient (CLI) | payer OTHER ==
[~2021-01-03] MED LIST changes: +FENTANYL1 EACH TRANSDERM
[2021-01-03 11:15] VITALS: BP 166/81
--- NOTE | 2021-01-03 11:33 | NUR ---
Pain Clinic Assessment: 1. History of Osteoarthritis: KNEES HIPS TOES FINGERS History of Rheumatoid Arthritis: Not Applicable 2. Height: ft. in. cm. Weight: lb. oz. kg. Patient's BMI: 3. Vital Signs: BP: 166/81 Pulse: 52 Resp: 18 Temp: 02 Sat: 98 ECG Mon: 4. Pain Intensity: 5/6 5. Fall Risk: Dizziness: N Needs help standing or walking: Y Fallen in the last 3 months: N Fall risk comments: 6. Patient on Blood Thinner: None 7. History of Hypertension: Y 8. Opioid Therapy greater than 6 weeks: Y Opiate Contract Signed: 11/22/17 9. Risk Assessment Tool Provided: *3 LOW RISK 10. Functional Assessment Tool: 11. Recreational Drug Use: Never Drug Type: Tobacco Use: Never Smoker Tobacco Type: Amount or Packs/day: How Many Years: Alcohol Use: No Frequency: Quant:
== END ==
LOC: PAIN 12-13 12:07
PROVIDERS: ATTEND Clinical Nurse Specialist Adult Health
DX: G89.29 Other chronic pain (principal); M54.50 Low back pain, unspecified; M19.011 Primary osteoarthritis, right shoulder; M19.012 Primary osteoarthritis, left shoulder; M16.0 Bilateral primary osteoarthritis of hip; M17.12 Unilateral primary osteoarthritis, left knee; F41.8 Other specified anxiety disorders; Z88.8 Allergy status to other drugs, medicaments and biological substances; Z79.899 Other long term (current) drug therapy

== ENCOUNTER → 2021-04-25 | Outpatient (CLI) | payer OTHER ==
[2021-04-25 09:57] VITALS: BP 128/71
--- NOTE | 2021-04-25 10:11 | NUR ---
Pain Clinic Assessment: 1. History of Osteoarthritis: KNEES HIPS TOES FINGERS History of Rheumatoid Arthritis: Not Applicable 2. Height: ft. in. cm. Weight: lb. oz. kg. Patient's BMI: 3. Vital Signs: BP: 128/71 Pulse: 51 Resp: 20 Temp: 02 Sat: 96 ECG Mon: 4. Pain Intensity: 7 5. Fall Risk: Dizziness: N Needs help standing or walking: Y Fallen in the last 3 months: N Fall risk comments: 6. Patient on Blood Thinner: None 7. History of Hypertension: Y 8. Opioid Therapy greater than 6 weeks: Y Opiate Contract Signed: 11/22/17 9. Risk Assessment Tool Provided: *3 LOW RISK 10. Functional Assessment Tool: 11. Recreational Drug Use: Never Drug Type: Tobacco Use: Never Smoker Tobacco Type: Amount or Packs/day: How Many Years: Alcohol Use: No Frequency: Quant:
== END ==
LOC: PAIN 09:03
PROVIDERS: ATTEND Anesthesiology Pain Medicine
DX: G89.29 Other chronic pain (principal); M16.0 Bilateral primary osteoarthritis of hip; M17.0 Bilateral primary osteoarthritis of knee; L03.90 Cellulitis, unspecified; F41.8 Other specified anxiety disorders; Z88.8 Allergy status to other drugs, medicaments and biological substances; Z79.899 Other long term (current) drug therapy